=== PATIENT | female | born 1985 | race American Indian/Alaskan Native ===

== ENCOUNTER 2017-04-06 19:40 | Emergency (ER) | payer OTHER ==
[2017-04-06 20:26] LABS: Basophils % (Auto) 1.2 % (0.0-1.8); Eosinophils % (Auto) 5.4 % (0.0-4.3); Hemoglobin 10.3 gm/dl (10.1-14.3); Mean Corpuscular HGB Conc 32 % (30-34); Mean Corpuscular Volume 75 fl (79-97); Platelet Count 247 K/mm3 (140-440); Red Cell Distribution Width 17.1 % (13.2-15.2); White Blood Count 6.5 K/mm3 (4.5-11.0)
[2017-04-06 20:27] LABS: Mean Corpuscular Hemoglobin 24 pg (28-32)
[2017-04-06 20:35] LABS: INR 0.93 (0.87-1.13)
[2017-04-06 20:36] LABS: Partial Thromboplastin Time 30.7 Sec. (24.2-36.6)
[2017-04-06 20:45] LABS: Alanine Aminotransferase 13 units/L (7-56); Albumin 4.2 g/dL (3.9-5); Albumin/Globulin Ratio 1.4 %; BUN/Creatinine Ratio 13; Bilirubin,Total < 0.20 mg/dL (0.1-1.2); Blood Urea Nitrogen 9 mg/dL (7-17); Carbon Dioxide 27 mmol/L (22-30); Glucose 135 mg/dL (65-100); Total Protein 7.2 g/dL (6.3-8.2)
[2017-04-06 20:46] LABS: Alkaline Phosphatase 52 units/L (35-129); Anion Gap 18 mmol/L; Chloride 99.6 mmol/L (98-107); Lipase 55 units/L (13-60); Sodium 141 mmol/L (137-145)
--- NOTE | 2017-04-06 21:39 | Emergency Department Report ---
ED Chest Pain HPI - General Chief Complaint: Chest Pain Stated Complaint: CHEST PAIN AND SHORTNESS OF BREATH Time Seen by Provider: 04/06/17 21:28 Source: patient Mode of arrival: Ambulatory Limitations: No Limitations - History of Present Illness Initial Comments: Patient is 31 years old female history of diabetes and hypothyroidism, presented today with left-sided chest pain described as flutters that comes and goes started today and she does not have any shortness of breath no fever or cough. MD Complaint: chest pain Severity scale (0 -10): 4 - Related Data Allergies Allergy/AdvReac Type Severity Reaction Status Date / Time No Known Allergies Allergy Verified 04/06/17 19:54 Heart Score - HEART Score History: Moderately suspicious EKG: Normal Age: < 45 Risk factors: 1-2 risk factors Troponin: < normal limit HEART Score: 2 - Critical Actions Critical Actions: 0-3 pts:0.9-1.7%risk of adverse cardiac event.Candidate for discharge ED Review of Systems ROS: Stated complaint: CHEST PAIN AND SHORTNESS OF BREATH Other details as noted in HPI Comment: All other systems reviewed and negative Constitutional: denies: chills, diaphoresis Respiratory: denies: cough, orthopnea, shortness of breath, SOB with exertion, SOB at rest Cardiovascular: chest pain, palpitations. denies: dyspnea on exertion, orthopnea, edema, syncope, paroxysmal nocturnal dyspnea Gastrointestinal: constipation. denies: abdominal pain, nausea, vomiting, diarrhea, hematemesis, melena, hematochezia Genitourinary: denies: dysuria Musculoskeletal: denies: back pain Neurological: denies: headache, weakness, numbness, paresthesias ED Past Medical Hx - Past Medical History Previous Medical History?: Yes Hx Diabetes: Yes Additional medical history: Obesity - Surgical History Past Surgical History?: No - Social History Smoking Status: Light Tobacco Smoker Substance Use Type: Alcohol ED Physical Exam - General Limitations: No Limitations General appearance: alert, in no apparent distress - Head Head exam: Present: atraumatic, normocephalic - Eye Eye exam: Present: normal appearance, PERRL - ENT ENT exam: Present: normal exam, normal orophraynx, mucous membranes moist - Neck Neck exam: Present: normal inspection, full ROM. Absent: tenderness, meningismus, lymphadenopathy - Respiratory Respiratory exam: Present: normal lung sounds bilaterally. Absent: respiratory distress, wheezes, rales, rhonchi, stridor, chest wall tenderness - Cardiovascular Cardiovascular Exam: Present: regular rate, normal rhythm, normal heart sounds - GI/Abdominal GI/Abdominal exam: Present: soft, normal bowel sounds. Absent: distended, tenderness, guarding, rebound, rigid, mass, bruit, pulsatile mass, hernia - Extremities Exam Extremities exam: Present: normal inspection, full ROM, normal capillary refill - Back Exam Back exam: Present: normal inspection. Absent: tenderness, CVA tenderness (R), CVA tenderness (L) - Neurological Exam Neurological exam: Present: alert, oriented X3, CN II-XII intact, normal gait - Skin Skin exam: Present: warm, intact, normal color ED Course Vital Signs 04/06/17 04/06/17 04/06/17 19:44 21:16 21:30 Temperature 99.1 F 98.7 F Pulse Rate 81 79 76 Respiratory 18 17 19 Rate Blood Pressure 116/72 Blood Pressure 118/76 132/73 [Right] O2 Sat by Pulse 96 98 100 Oximetry - Reevaluation(s) Reevaluation #1: 04/06/17 22:39 Patient is sleeping comfortably easily arousable in no acute distress. I informed the patient about her TSH result which is 17 that indicate severe hypothyroidism. I will prescribe Synthroid and advised patient to follow up with her primary care physician for further management. ED Medical Decision Making - Lab Data Result diagrams: 04/06/17 20:07 04/06/17 20:07 - EKG Data -: EKG Interpreted by Me EKG shows normal: sinus rhythm - EKG Data Interpretation: no acute changes Critical care attestation.: If time is entered above; I have spent that time in minutes in the direct care of this critically ill patient, excluding procedure time. ED Disposition Clinical Impression: Chest pain, Hypothyroidism Disposition: DC-01 TO HOME OR SELFCARE Is pt being admited?: No Condition: Stable Instructions: Chest Pain (ED), Hypothyroidism (ED) Referrals: PRIMARY CARE,MD [Primary Care Provider] - 3-5 Days
[2017-04-06 21:46] LABS: Bacteria,Urine 1+ /HPF (Negative); Bilirubin,Urine NEG (Negative); Blood,Urine LG (Negative); Ketones,Urine NEG (Negative); Leukocyte Esterase,Urine TR (Negative); Mucus,Urine FEW /HPF; Nitrite,Urine NEG (Negative); Protein,Urine <15 mg/dL mg/dL (Negative); Urobilinogen,Urine < 2.0 mg/dL (<2.0)
[2017-04-06 21:47] LABS: RBC,Urine > 182.0 /HPF (0.0-6.0)
[2017-04-06 22:01] VITALS: BP 116/72
[2017-04-06] MEDS ORDERED: TORADOL PO ONE (23:11)
--- NOTE | 2017-04-07 08:27 | XRay Report ---
ROUTINE CHEST, TWO VIEWS: Fever. PA and lateral views demonstrate the heart and mediastinal contour to be of normal size and shape. The lungs are clear and fully expanded and the soft tissues and bony structures are normal. IMPRESSION: Normal study.
== END 2017-04-06 23:40 | disposition home or self-care (01) ==
LOC: ED 19:40
DX: R07.9 Chest pain, unspecified (principal); E03.9 Hypothyroidism, unspecified; E11.9 Type 2 diabetes mellitus without complications; E66.9 Obesity, unspecified; Z72.0 Tobacco use
CPT/HCPCS: 36415; 71020; 80053; 81001; 82805; 83690; 84439; 84443; 84484; 84703; 85025; 85610; 85730; 93005; 93010; 99284

== ENCOUNTER 2019-06-13 02:56 | Emergency (ER) | payer OTHER ==
[2019-06-13 03:18] VITALS: BP 115/63
[2019-06-13 04:01] LABS: Basophils # (Auto) 0.1 K/mm3 (0.0-0.1); Basophils % (Auto) 1.2 % (0.0-1.8); Eosinophils # (Auto) 0.2 K/mm3 (0.0-0.4); Eosinophils % (Auto) 3.6 % (0.0-4.3); Hematocrit 29.9 % (30.3-42.9); Hemoglobin 9.6 gm/dl (10.1-14.3); Lymphocytes # (Auto) 2.2 K/mm3 (1.2-5.4); Lymphocytes % (Auto) 32.5 % (13.4-35.0); Mean Corpuscular HGB Conc 32 % (30-34); Monocytes # (Auto) 0.6 K/mm3 (0.0-0.8); Platelet Count 258 K/mm3 (140-440); Red Blood Count 4.35 M/mm3 (3.65-5.03); Red Cell Distribution Width 19.7 % (13.2-15.2)
--- NOTE | 2019-06-13 04:02 | Emergency Department Report ---
ED General Adult HPI - General Chief complaint: Neuro Symptoms/Deficit Stated complaint: LEFT ARM AND HAND PAIN,HEADACHE AND BODYACHE Time Seen by Provider: 06/13/19 03:42 Source: patient Mode of arrival: Ambulatory Limitations: No Limitations - History of Present Illness Initial comments: 33-year-old -[place] female with history of hypothyroidism presents with complaints of intermittent headaches x one year, chronic back pain, and left hand pain radiating up her arm with numbness today. Patient states she has been evaluated in the ER many times over the past year for her headaches without any abnormalities being found. She denies any current headache, dizziness, vision changes, or confusion. Patient denies any injuries to her left arm or hand and also denies any heavy lifting or overuse of her extremity. She also reports that she took a nap and when she awoke she had numbness in her left leg that lasted a few seconds and then resolved. She denies any swelling/pain in her leg, hormone use, shortness of breath/chest pain, recent long travel, or hemoptysis. Patient states her back pain is chronic and intermittent and she has been following with a chiropractor and was diagnosed with a herniated disc. She denies any loss of bladder/bowel control, hematochezia/hematuria, or difficulty with ambulation. Patient admits to being noncompliant with her thyroid medication for the past 3 months. She states she is not currently following with a primary care provider - Related Data Previous Rx's Medication Instructions Recorded Last Taken Type Levothyroxine Sodium [Synthroid] 150 mcg PO DAILY #30 tablet 04/06/17 Unknown Rx Ferrous Sulfate [Ferrous Sulfate 324 mg PO TID 30 Days #90 tablet. 06/13/19 Unknown Rx 324 MG] Ibuprofen [Motrin 800 MG tab] 800 mg PO Q8HR PRN #21 tablet 06/13/19 Unknown Rx Allergies Allergy/AdvReac Type Severity Reaction Status Date / Time No Known Allergies Allergy Verified 04/06/17 19:54 ED Review of Systems ROS: Stated complaint: LEFT ARM AND HAND PAIN,HEADACHE AND BODYACHE Other details as noted in HPI Constitutional: denies: chills, fever Eyes: denies: eye pain, vision change Respiratory: denies: cough, shortness of breath Cardiovascular: denies: chest pain, palpitations, edema, syncope Endocrine: denies: excessive sweating, flushing Gastrointestinal: denies: abdominal pain, constipation, hematochezia Genitourinary: denies: urgency, frequency, hematuria Musculoskeletal: back pain, arthralgia. denies: joint swelling Skin: denies: rash, lesions Neurological: headache, numbness, paresthesias. denies: weakness, confusion, abnormal gait Psychiatric: denies: anxiety, depression, auditory hallucinations, visual hallucinations Hematological/Lymphatic: denies: easy bleeding, easy bruising, swollen glands ED Past Medical Hx - Past Medical History Previous Medical History?: Yes Hx Diabetes: Yes Additional medical history: Obesity, thyroid - Surgical History Past Surgical History?: No - Social History Smoking Status: Former Smoker Substance Use Type: None - Medications Home Medications: Home Medications Medication Instructions Recorded Confirmed Last Taken Type Levothyroxine Sodium [Synthroid] 150 mcg PO DAILY #30 tablet 04/06/17 Unknown Rx Ferrous Sulfate [Ferrous Sulfate 324 mg PO TID 30 Days #90 tablet.dr 06/13/19 Unknown Rx 324 MG] Ibuprofen [Motrin 800 MG tab] 800 mg PO Q8HR PRN #21 tablet 06/13/19 Unknown Rx ED Physical Exam - General Limitations: No Limitations General appearance: alert, in no apparent distress - Head Head exam: Present: atraumatic, normocephalic - Eye Eye exam: Present: normal appearance, PERRL. Absent: scleral icterus - ENT ENT exam: Present: normal orophraynx, mucous membranes moist - Neck Neck exam: Present: normal inspection, full ROM. Absent: tenderness - Respiratory Respiratory exam: Present: normal lung sounds bilaterally. Absent: respiratory distress - Cardiovascular Cardiovascular Exam: Present: regular rate, normal rhythm. Absent: systolic murmur, diastolic murmur, rubs, gallop - GI/Abdominal GI/Abdominal exam: Present: soft, normal bowel sounds - Extremities Exam Extremities exam: Present: normal inspection, full ROM. Absent: pedal edema, calf tenderness - Expanded Upper Extremity Exam Left Forearm Wrist exam: Present: full ROM, tenderness (left ), swelling (mild dorsal ). Absent: laceration, ecchymosis, deformity, erythema - Back Exam Back exam: Present: normal inspection, full ROM. Absent: paraspinal tenderness, vertebral tenderness - Neurological Exam Neurological exam: Present: alert, oriented X3, CN II-XII intact, normal gait. Absent: motor sensory deficit - Expanded Neurological Exam Expanded Cerebellar function: Finger to Nose: Normal, Heel to Bee: Normal, Romberg: Normal Sensory exam: Upper Extremity Light Touch: Normal, Lower Extremity Light Touch: Normal Motor strength exam: RUE: 5, LUE: 5, RLE: 5, LLE: 5 ED Course Vital Signs 06/13/19 03:07 Temperature 98.8 F Pulse Rate 87 Respiratory 20 Rate Blood Pressure 115/63 O2 Sat by Pulse 95 Oximetry ED Medical Decision Making - Lab Data Result diagrams: 06/13/19 03:40 06/13/19 03:40 Lab Results 06/13/19 06/13/19 06/13/19 Range/Units 03:40 03:40 03:40 WBC 6.8 (4.5-11.0) K/mm3 RBC 4.35 (3.65-5.03) M/mm3 Hgb 9.6 L (10.1-14.3) gm/dl Hct 29.9 L (30.3-42.9) % MCV 69 L (79-97) fl MCH 22 L (28-32) pg MCHC 32 (30-34) % RDW 19.7 H (13.2-15.2) % Plt Count 258 (140-440) K/mm3 Lymph % (Auto) 32.5 (13.4-35.0) % Centre % (Auto) 9.0 H (0.0-7.3) % Eos % (Auto) 3.6 (0.0-4.3) % Baso % (Auto) 1.2 (0.0-1.8) % Lymph # 2.2 (1.2-5.4) K/mm3 Centre # 0.6 (0.0-0.8) K/mm3 Eos # 0.2 (0.0-0.4) K/mm3 Baso # 0.1 (0.0-0.1) K/mm3 Seg Neutrophils % 53.7 (40.0-70.0) % Seg Neutrophils # 3.7 (1.8-7.7) K/mm3 Sodium 139 (137-145) mmol/L Potassium 4.0 (3.6-5.0) mmol/L Chloride 101.7 (98-107) mmol/L Carbon Dioxide 27 (22-30) mmol/L Anion Gap 14 mmol/L BUN 9 (7-17) mg/dL Creatinine 0.9 (0.7-1.2) mg/dL Estimated GFR > 60 ml/min BUN/Creatinine Ratio 10 % Glucose 154 H (65-100) mg/dL Calcium 9.1 (8.4-10.2) mg/dL Total Bilirubin 0.20 (0.1-1.2) mg/dL AST 24 (5-40) units/L ALT 13 (7-56) units/L Alkaline Phosphatase 46 (35-129) units/L Total Protein 7.5 (6.3-8.2) g/dL Albumin 4.2 (3.9-5) g/dL Albumin/Globulin Ratio 1.3 % TSH 10.310 H (0.270-4.200) mlU/mL Free T4 (0.76-1.46) ng/dL Urine Color (Yellow) Urine Turbidity (Clear) Urine pH (5.0-7.0) Ur Specific Boring (1.003-1.030) Urine Protein (Negative) mg/dL Urine Glucose (UA) (Negative) mg/dL Urine Ketones (Negative) mg/dL Urine Blood (Negative) Urine Nitrite (Negative) Ur Reducing Substances Urine Bilirubin (Negative) Urine Ictotest Urine Urobilinogen (<2.0) mg/dL Ur Leukocyte Esterase (Negative) Urine WBC (Auto) (0.0-6.0) /HPF Urine RBC (Auto) (0.0-6.0) /HPF U Epithel Cells (Auto) (0-13.0) /HPF Urine Bacteria (Auto) (Negative) /HPF Amorphous Crystals Urine Mucus /HPF Urine HCG, Qual (Negative) 06/13/19 06/13/19 Range/Units 03:40 05:17 WBC (4.5-11.0) K/mm3 RBC (3.65-5.03) M/mm3 Hgb (10.1-14.3) gm/dl Hct (30.3-42.9) % MCV (79-97) fl MCH (28-32) pg MCHC (30-34) % RDW (13.2-15.2) % Plt Count (140-440) K/mm3 Lymph % (Auto) (13.4-35.0) % Centre % (Auto) (0.0-7.3) % Eos % (Auto) (0.0-4.3) % Baso % (Auto) (0.0-1.8) % Lymph # (1.2-5.4) K/mm3 Centre # (0.0-0.8) K/mm3 Eos # (0.0-0.4) K/mm3 Baso # (0.0-0.1) K/mm3 Seg Neutrophils % (40.0-70.0) % Seg Neutrophils # (1.8-7.7) K/mm3 Sodium (137-145) mmol/L Potassium (3.6-5.0) mmol/L Chloride (98-107) mmol/L Carbon Dioxide (22-30) mmol/L Anion Gap mmol/L BUN (7-17) mg/dL Creatinine (0.7-1.2) mg/dL Estimated GFR ml/min BUN/Creatinine Ratio % Glucose (65-100) mg/dL Calcium (8.4-10.2) mg/dL Total Bilirubin (0.1-1.2) mg/dL AST (5-40) units/L ALT (7-56) units/L Alkaline Phosphatase (35-129) units/L Total Protein (6.3-8.2) g/dL Albumin (3.9-5) g/dL Albumin/Globulin Ratio % TSH (0.270-4.200) mlU/mL Free T4 0.69 L (0.76-1.46) ng/dL Urine Color Yellow (Yellow) Urine Turbidity Slightly-cloudy (Clear) Urine pH 6.0 (5.0-7.0) Ur Specific Boring 1.027 (1.003-1.030) Urine Protein 30 mg/dl (Negative) mg/dL Urine Glucose (UA) Neg (Negative) mg/dL Urine Ketones Tr (Negative) mg/dL Urine Blood Neg (Negative) Urine Nitrite Neg (Negative) Ur Reducing Substances Not Reportable Urine Bilirubin Neg (Negative) Urine Ictotest Not Reportable Urine Urobilinogen 2.0 (<2.0) mg/dL Ur Leukocyte Esterase Tr (Negative) Urine WBC (Auto) 4.0 (0.0-6.0) /HPF Urine RBC (Auto) 2.0 (0.0-6.0) /HPF U Epithel Cells (Auto) 6.0 (0-13.0) /HPF Urine Bacteria (Auto) 1+ (Negative) /HPF Amorphous Crystals Few Urine Mucus Few /HPF Urine HCG, Qual Negative (Negative) - Radiology Data Radiology results: report reviewed LEFT WRIST 3 VIEWS INDICATION / CLINICAL INFORMATION: pain, swelling, no injury COMPARISON: None available. FINDINGS: BONES / JOINT(S): No acute fracture or subluxation. No significant arthritis. SOFT TISSUES: No significant abnormality. ADDITIONAL FINDINGS: None. CT head/brain wo con INDICATION / CLINICAL INFORMATION: 33 years Female; Pt complains of headache with LEFT arm and leg numbness.. TECHNIQUE: Routine CT head without contrast. All CT scans at this location are performed using CT dose reduction for ALARA by means of automated exposure control. COMPARISON: None. FINDINGS: BRAIN / INTRACRANIAL CONTENTS: No acute hemorrhage, mass effect, midline shift, hydrocephalus, or acute, large territorial infarct. No chronic infarct or atrophy appreciated. No significant white matter abnormality. CRANIOCERVICAL JUNCTION: No significant abnormality. ORBITS: No significant abnormality of visualized orbits. SINUSES / MASTOIDS: No significant abnormality the visualized paranasal sinuses or mastoid air cells. ADDITIONAL FINDINGS: None. IMPRESSION: 1. No focal mass, hemorrhage, hydrocephalus, or acute, large territorial infarct. - Medical Decision Making 33-year-old -[place] female with history of hypothyroidism presents with complaints of intermittent headaches times one year, chronic back pain, and left hand pain radiating up her arm with numbness today. She denies any current KNOWLES or left leg numbness. She reports her back pain is chronic and denies any new changes. Pt also denies any redflag symptoms. CT head is negative for acute findings. Neuro exam is wnl. TSH noted to be elevated at 10pt states she has been noncompliant with her thyroid meds x 3 months. Free T4 mildly decreased at 0.69. Pt is unsure of the name and dosage of her thyroid medication. Vitals are wnl. XR of left wrist is normal. Discuss importance of follow-up with a primary care provider to restart on her thyroid medication. Also recommend follow-up with neurology for further evaluation of her chronic intermittent headaches. She is nontoxic appearing and stable for discharge home. Discussed very strict return precautions in great detail with patient who verbalizes understanding. Critical care attestation.: If time is entered above; I have spent that time in minutes in the direct care of this critically ill patient, excluding procedure time. ED Disposition Clinical Impression: Hyperglycemia, Intermittent headache, Left hand pain Chronic back pain Qualifiers: Back pain location: back pain in other location Qualified Code(s): M54.9 - [place], unspecified Iron deficiency anemia Qualifiers: Iron deficiency anemia type: other iron deficiency Qualified Code(s): D50.8 - Other iron deficiency anemias Disposition: TO HOME OR SELFCARE Is pt being admited?: No Condition: Stable Instructions: Hypothyroidism (ED), Acute Headache (ED), Hyperglycemia, Non-Di abetic (ED), Arthralgia (ED) Prescriptions: Ferrous Sulfate [Ferrous Sulfate 324 MG] 324 mg PO TID 30 Days #90 tablet. Ibuprofen [Motrin 800 MG tab] 800 mg PO Q8HR PRN #21 tablet PRN Reason: pain Referrals: MAXIMO RASMUSSEN MD [Referring] - 2-3 Days SAMSON GONZALEZ MD [Staff Physician] - 2-3 Days (For further evaluation and treatment of your thyroid disease and left wrist pain) Forms: Accompanied Note, Work/School Release Form(ED)
[2019-06-13 04:23] LABS: Alanine Aminotransferase 13 units/L (7-56); Albumin 4.2 g/dL (3.9-5); BUN/Creatinine Ratio 10; Blood Urea Nitrogen 9 mg/dL (7-17); Calcium 9.1 mg/dL (8.4-10.2); Hemolysis Index 1
[2019-06-13 04:31] LABS: Mean Corpuscular Volume 69 fl (79-97)
--- NOTE | 2019-06-13 04:31 | Cat Scan Report ---
CT head/brain wo con INDICATION / CLINICAL INFORMATION: 33 years Female; Pt complains of headache with LEFT arm and leg numbness.. TECHNIQUE: Routine CT head without contrast. All CT scans at this location are performed using CT dos e reduction for ALARA by means of automated exposure control. COMPARISON: None. FINDINGS: BRAIN / INTRACRANIAL CONTENTS: No acute hemorrhage, mass effect, midline shift, hydrocephalus, or acu te, large territorial infarct. No chronic infarct or atrophy appreciated. No significant white matter abnormality. CRANIOCERVICAL JUNCTION: No significant abnormality. ORBITS: No significant abnormality of visualized orbits. SINUSES / MASTOIDS: No significant abnormality the visualized paranasal sinuses or mastoid air cells. ADDITIONAL FINDINGS: None. IMPRESSION: 1. No focal mass, hemorrhage, hydrocephalus, or acute, large territorial infarct. Signer Name: Nacho Negro MD, III Signed: 06/13/2019 4:27 AM Workstation Name: [id number]
[2019-06-13 05:31] LABS: HCG Qualitative,Urine Negative (Negative)
[2019-06-13 05:39] LABS: Amorphous Crystals,Urine Few; Bacteria,Urine 1+ /HPF (Negative); Bilirubin,Urine NEG (Negative); Blood,Urine NEG (Negative); Color,Urine Yellow (Yellow); Mucus,Urine FEW /HPF
--- NOTE | 2019-06-13 06:01 | XRay Report ---
LEFT WRIST 3 VIEWS INDICATION / CLINICAL INFORMATION: pain, swelling, no injury COMPARISON: None available. FINDINGS: BONES / JOINT(S): No acute fracture or subluxation. No significant arthritis. SOFT TISSUES: No significant abnormality. ADDITIONAL FINDINGS: None. Signer Name: Merlin Fernandez MD Signed: 06/13/2019 5:56 AM Workstation Name: [id number]
== END 2019-06-13 06:40 | disposition home or self-care (01) ==
LOC: ED 02:56
DX: R51 Headache (principal); M79.642 Pain in left hand; M54.9 Dorsalgia, unspecified; G89.29 Other chronic pain; D50.8 Other iron deficiency anemias; E11.65 Type 2 diabetes mellitus with hyperglycemia; Z87.891 Personal history of nicotine dependence; Z79.899 Other long term (current) drug therapy
CPT/HCPCS: 36415; 70450; 80053; 81001; 81025; 84439; 84443; 85025

== ENCOUNTER 2019-08-14 11:48 | Outpatient (CLI) | payer OTHER ==
--- NOTE | 2019-08-14 13:04 | Mammography Report ---
DIGITAL DIAGNOSTIC MAMMOGRAM WITH CAD, 08/14/2019 INDICATION: 33-year-old with left breast/axillary pain. LEFT BREAST PAIN/LEFT AXILLA TECHNIQUE: Digital bilateral mammographic imaging was performed. This examination was interpreted with the benefit of Computer-aided Detection analysis. COMPARISON: None. This is a baseline mammogram. FINDINGS: Breast Density: The breasts are almost entirely fatty. There is no evidence of dominant mass, suspicious calcifications or architectural distortion in eithe r breast. However, a prominent left axillary lymph node is partially included on images and requires evaluation with ultrasound. IMPRESSION: Negative mammogram except for a prominent left axillary lymph node. Recommend return for ultrasound of the left breast and axilla. Follow up recommendation: Ultrasound Category 0: Incomplete. Needs additional imaging evaluation and/or prior mammograms for comparison. A "normal" or negative report should not discourage follow up or biopsy of a clinically significant f inding. A written summary of these findings will be mailed to the patient. The patient will be entered into a mammography reporting system which will generate a reminder letter for the patient's next appointmen t at the appropriate interval. According to the [employer], yearly mammograms are recommended starting at age 40 and continuing as long as a woman is in good health. Breast MRI is recommended for women with an [place] roximately 20-25% or greater lifetime risk of breast cancer, including women with a strong family his tory of breast or ovarian cancer and women who have been treated for Hodgkin's disease. Signer Name: Caleb Naqvi MD Signed: 08/14/2019 1:00 PM Workstation Name: [id number]
== END 2019-08-14 11:49 | disposition home or self-care (01) ==
LOC: SPVWC 11:48
PROVIDERS: ATTEND Surgery
DX: R59.0 Localized enlarged lymph nodes (principal); N64.4 Mastodynia
CPT/HCPCS: 77066

== ENCOUNTER 2019-08-15 14:35 | Outpatient (CLI) | payer OTHER ==
--- NOTE | 2019-08-15 15:33 | Ultrasound Report ---
EXAMINATION: Left Limited Breast Ultrasound, 08/15/2019 INDICATION: ABNORMAL MAMMOGRAM/LEFT BREAST PAIN. Patient presents for evaluation of a prominent left axillary lym ph node seen on recent mammogram. COMPARISON: Prior mammogram 08/14/2019 FINDINGS: Targeted ultrasound evaluation was performed of the area of interest. Targeted ultrasound of the left axilla reveals a prominent lymph node measuring up to 3.0 cm in greatest dimension with c ortical thickening measuring up to 7 mm in thickness. Targeted ultrasound was performed of the right axilla for comparison purposes, which reveals a prominent right axillary lymph node measuring up to 3 .1 cm in greatest dimension with cortical thickening measuring up to 6 mm. IMPRESSION: 1. Prominent bilateral axillary lymph nodes with cortical thickening. Given the fact that this is [place] ateral and symmetric, this favors a systemic or reactive etiology. Recommend clinical correlation for possible recent infection or underlying medical condition, and recommend short interval follow-up bi lateral axillary ultrasound in 3 months to ensure stability or resolution. Follow up recommendation: Short term follow up in 3 months. BI-RADS Category 3: Probably Benign. Followup in 3 months. Signer Name: Gricelda Bentley MD Signed: 08/15/2019 3:28 PM Workstation Name: [id number]
== END 2019-08-15 14:36 | disposition home or self-care (01) ==
LOC: SPVWC 14:35
PROVIDERS: ATTEND Surgery
DX: N64.9 Disorder of breast, unspecified (principal); N64.4 Mastodynia; N62 Hypertrophy of breast

== ENCOUNTER 2020-03-12 00:54 | Emergency (ER) | payer OTHER ==
[2020-03-12 02:01] LABS: Basophils # (Auto) 0.1 K/mm3 (0.0-0.1); Basophils % (Auto) 1.2 % (0.0-1.8); Eosinophils # (Auto) 0.2 K/mm3 (0.0-0.4); Eosinophils % (Auto) 2.8 % (0.0-4.3); Hematocrit 32.9 % (30.3-42.9); Hemoglobin 10.5 gm/dl (10.1-14.3); Lymphocytes # (Auto) 2.7 K/mm3 (1.2-5.4); Lymphocytes % (Auto) 42.4 % (13.4-35.0); Mean Corpuscular HGB Conc 32 % (30-34); Monocytes # (Auto) 0.5 K/mm3 (0.0-0.8); Monocytes % (Auto) 8.6 % (0.0-7.3); Platelet Count 258 K/mm3 (140-440); Red Blood Count 4.88 M/mm3 (3.65-5.03); Red Cell Distribution Width 19.7 % (13.2-15.2)
[2020-03-12 02:09] LABS: Mean Corpuscular Volume 67 fl (79-97)
[2020-03-12 02:26] LABS: Alanine Aminotransferase 9 units/L (7-56); Albumin 4.2 g/dL (3.9-5); BUN/Creatinine Ratio 14; Blood Urea Nitrogen 11 mg/dL (7-17); Calcium 9.4 mg/dL (8.4-10.2); Hemolysis Index 10
[2020-03-12] MEDS ORDERED: SODIUM CHLORIDE 0.9% 1000 ML 1,000 ML IV ONE ×2 (03:45)
[2020-03-12] MEDS ORDERED: DEXTROSE 50% IN WATER (25GM) 50 ML SYRINGE IV PRN ×2 (03:45→03:48)
--- NOTE | 2020-03-12 03:46 | Emergency Department Report ---
ED Dizziness HPI - General Chief Complaint: Hyperglycemia Stated Complaint: HIGH BS Time Seen by Provider: 03/12/20 03:33 Source: patient Mode of arrival: Ambulatory Limitations: No Limitations - History of Present Illness Initial Comments: Patient is a 34-year-old female who presents emergency room with complaints of dizziness and lightheadedness. Patient states that she checked her sugar today and it read high on her machine. Patient states she has not been compliant with her diabetes medications. Patient only supposed to be on Metformin. Patient states she has not seen a physician for a while. Patient states that she having frequent urination. Patient states she is having increased thirst. Patient denies chest pain or shortness of breath. Patient denies recent travel. Patient denies recent international travel. Patient denies exposure to the novel coronavirus. Patient denies sick contacts. Patient denies fever and chills. Patient denies cough. Patient denies diarrhea. Patient denies coming in contact with anybody with symptoms of the novel coronavirus. MD Complaint: dizziness, lightheadedness - Related Data Previous Rx's Medication Instructions Recorded Last Taken Type Ferrous Sulfate [Ferrous Sulfate 324 mg PO TID 30 Days #90 tablet.dr 06/13/19 Unknown Rx 324 MG] Ibuprofen [Motrin 800 MG tab] 800 mg PO Q8HR PRN #21 tablet 06/13/19 Unknown Rx Levothyroxine Sodium [Synthroid] 150 mcg PO DAILY #30 tablet 03/12/20 Unknown Rx metFORMIN [Glucophage] 500 mg PO BID #30 tablet 03/12/20 Unknown Rx Allergies Allergy/AdvReac Type Severity Reaction Status Date / Time No Known Allergies Allergy Verified 04/06/17 19:54 ED Review of Systems ROS: Stated complaint: HIGH BS Other details as noted in HPI Constitutional: denies: chills, fever Eyes: denies: eye pain, eye discharge, vision change ENT: denies: ear pain, throat pain Respiratory: denies: cough, shortness of breath, wheezing Cardiovascular: denies: chest pain, palpitations Endocrine: no symptoms reported Gastrointestinal: denies: abdominal pain, nausea, diarrhea Genitourinary: denies: urgency, dysuria, discharge Musculoskeletal: denies: back pain, joint swelling, arthralgia Skin: denies: rash, lesions Neurological: as per HPI, weakness. denies: headache, paresthesias Psychiatric: denies: anxiety, depression Hematological/Lymphatic: denies: easy bleeding, easy bruising ED Past Medical Hx - Past Medical History Previous Medical History?: Yes Hx Diabetes: Yes Additional medical history: Obesity, thyroid - Surgical History Past Surgical History?: No - Family History Family history: no significant - Social History Smoking Status: Former Smoker Substance Use Type: None - Medications Home Medications: Home Medications Medication Instructions Recorded Confirmed Last Taken Type Ferrous Sulfate [Ferrous Sulfate 324 mg PO TID 30 Days #90 tablet. 06/13/19 Unknown Rx 324 MG] Ibuprofen [Motrin 800 MG tab] 800 mg PO Q8HR PRN #21 tablet 06/13/19 Unknown Rx Levothyroxine Sodium [Synthroid] 150 mcg PO DAILY #30 tablet 03/12/20 Unknown Rx metFORMIN [Glucophage] 500 mg PO BID #30 tablet 03/12/20 Unknown Rx ED Physical Exam - General Limitations: No Limitations General appearance: alert, in no apparent distress - Head Head exam: Present: atraumatic, normocephalic - Eye Eye exam: Present: normal appearance - ENT ENT exam: Present: mucous membranes dry - Neck Neck exam: Present: normal inspection - Respiratory Respiratory exam: Present: normal lung sounds bilaterally. Absent: respiratory distress - Cardiovascular Cardiovascular Exam: Present: regular rate, normal rhythm. Absent: systolic murmur, diastolic murmur, rubs, gallop - GI/Abdominal GI/Abdominal exam: Present: soft, normal bowel sounds - Extremities Exam Extremities exam: Present: normal inspection - Back Exam Back exam: Present: normal inspection - Neurological Exam Neurological exam: Present: alert, oriented X3 - Psychiatric Psychiatric exam: Present: normal affect, normal mood - Skin Skin exam: Present: warm, dry, intact, normal color. Absent: rash ED Course Vital Signs 03/12/20 03/12/20 01:07 06:17 Temperature 98.8 F Pulse Rate 93 H 80 Respiratory 16 18 Rate Blood Pressure 129/77 Blood Pressure 130/86 [Left] O2 Sat by Pulse 97 100 Oximetry - Reevaluation(s) Reevaluation #1: Patient states she is feeling much better. Patient states that her dizziness has resolved. Patient states that she is also out of her thyroid medication. I discussed all results and clinical findings with patient. I discussed plan of care with patient. Patient agrees with plan of care. Patient is stable for discharge. Patient will be discharged home. Patient given discharge instructions. Patient voiced understanding of discharge instructions. 03/12/20 06:18 ED Medical Decision Making - Lab Data Result diagrams: 03/12/20 01:05 03/12/20 01:05 - Medical Decision Making Patient is a 34-year-old female who presents emergency room with complaints of dizziness, weakness and hyperglycemia. Patient had labs done. Patient's labs significant for hyperglycemia. Patient's anion gap is normal. Patient's Bicarb is normal. Patient's CBC is normal. Patient given fluids and insulin in the ER. Patient responded well to treatment. Patient has been noncompliant with her diabetes and thyroid medication. Patient given a refill of Metformin and her thyroid medication. Patient stable for discharge. Patient given discharge instructions. Prior to discharge patient was essentially asymptomatic. - Differential Diagnosis Hyperglycemia, DKA, HHS, noncompliance, uncontrolled diabetes. Critical care attestation.: If time is entered above; I have spent that time in minutes in the direct care of this critically ill patient, excluding procedure time. ED Disposition Clinical Impression: Hyperglycemia, Weakness, Dizziness, Frequent urination, Noncompliance Uncontrolled diabetes mellitus Qualifiers: Diabetes mellitus type: type 2 Glycemic state: with hyperglycemia Qualified Code(s): E11.65 - Type 2 diabetes mellitus with hyperglycemia Disposition: - TO HOME OR SELFCARE Is pt being admited?: Yes Does the pt Need Aspirin: No Instructions: How to Check Your Blood Sugar (ED), Diabetes Mellitus Type 2 in Adults (ED) Additional Instructions: Patient to follow-up with primary care in 2 to 3 days. Patient to rest. Patient to increase water. Patient to be compliant with all medications. Patient to eat a diabetic diet. Patient to monitor blood sugars. Patient to take blood sugar log to all follow-up appointments.. Patient to take Tylenol or ibuprofen as needed for pain. Patient to take meds as directed. Patient to return to the ER if condition worsens, changes or new symptoms arise. Prescriptions: metFORMIN [Glucophage] 500 mg PO BID #30 tablet Levothyroxine Sodium [Synthroid] 150 mcg PO DAILY #30 tablet Referrals: PRIMARY CAREMD [Primary Care Provider] - 2-3 Days EVY HARRISON MD [Staff Physician] - 2-3 Days Time of Disposition: 06:19
[2020-03-12] MEDS ORDERED: INSULIN REGULAR, HUMAN 100 UNITS in SODIUM CHLORIDE 0.9% 99 ML IV SCH ×2 (04:00)
[2020-03-12] MEDS ORDERED: INSULIN REGULAR, HUMAN 100 UNIT/ML 3ML VIAL IV ONE (04:01)
[2020-03-12 04:03] LABS: Bilirubin,Urine NEG (Negative); Blood,Urine NEG (Negative); Color,Urine Colorless (Yellow); Protein,Urine <15 mg/dL mg/dL (Negative); RBC,Urine < 1.0 /HPF (0.0-6.0); Urobilinogen,Urine < 2.0 mg/dL (<2.0)
[2020-03-12] MEDS ORDERED: INSULIN REGULAR, HUMAN 100 UNITS/1 ML ONE (05:00)
[2020-03-12 06:18] VITALS: BP 130/86
== END 2020-03-12 07:07 | disposition home or self-care (01) ==
LOC: ED 00:54
DX: E11.65 Type 2 diabetes mellitus with hyperglycemia (principal); R53.1 Weakness; R42 Dizziness and giddiness; R35.0 Frequency of micturition; Z91.19 Patient's noncompliance with other medical treatment and regimen; Z87.891 Personal history of nicotine dependence; Z79.84 Long term (current) use of oral hypoglycemic drugs; Z79.1 Long term (current) use of non-steroidal anti-inflammatories (NSAID); Z79.899 Other long term (current) drug therapy
CPT/HCPCS: 36415; 80053; 81001; 82962; 85025; 96361; 96374; 99283; J7030; J1815

== ENCOUNTER 2020-10-01 23:58 | Emergency (ER) | payer OTHER ==
[2020-10-02] MEDS ORDERED: SODIUM CHLORIDE 0.9% 1000 ML 1,000 ML IV ONE ×3 (02:10→07:47)
[2020-10-02 02:20] LABS: Bilirubin,Urine NEG (Negative); Blood,Urine NEG (Negative); Color,Urine Straw (Yellow); Mucus,Urine FEW /HPF; Protein,Urine <15 mg/dL mg/dL (Negative); Urobilinogen,Urine < 2.0 mg/dL (<2.0)
[2020-10-02 02:28] LABS: Hematocrit 32.3 % (30.3-42.9); Hemoglobin 10.7 gm/dl (10.1-14.3); Mean Corpuscular HGB Conc 33 % (30-34); Platelet Count 257 K/mm3 (140-440); Red Blood Count 4.66 M/mm3 (3.65-5.03); Red Cell Distribution Width 17.5 % (13.2-15.2)
[2020-10-02 02:29] LABS: Mean Corpuscular Volume 69 fl (79-97)
[2020-10-02 02:47] LABS: Alanine Aminotransferase 21 units/L (7-56); Albumin 4.5 g/dL (3.9-5); BUN/Creatinine Ratio 15; Blood Urea Nitrogen 12 mg/dL (7-17); Calcium 8.8 mg/dL (8.4-10.2); Hemolysis Index 0
--- NOTE | 2020-10-02 03:25 | Event Note ---
ED Screening Note Date of service: 10/02/20 Time: 02:20 ED Screening Note: Patient is a 34-year-old -[place] female with a history of morbid obesity, hypertension and noninsulin-dependent diabetes who presents to the ED with complaint of acute onset persistent hyperglycemia for the last 2 weeks, stating that the last time she checked her blood sugar was 2 days ago and it was "high" and suspected that it may have been over 500 mg/dL. Patient states that she takes Metformin 500 mg twice a day but rarely checks her blood sugar. Patient denies dizziness, syncope, chest pain, shortness of breath, abdominal pain, nausea and vomiting, dysuria, urinary frequency and urgency, fever, ch ills, diarrhea, headache, lightheadedness or palpitations. This initial assessment/diagnostic orders/clinical plan/treatment(s) is/are subject to change based on patients health status, clinical progression and re- assessment by fellow clinical providers in the ED. Further treatment and workup at subsequent clinical providers discretion. Patient/guardian urged not to elope from the ED as their condition may be serious if not clinically assessed and managed. Initial orders include: CBC, CMP, UA, hCG,
[2020-10-02] MEDS ORDERED: INSULIN REGULAR, HUMAN 100 UNITS/1 ML IV ONE ×2 (07:47→08:47)
--- NOTE | 2020-10-02 08:05 | Emergency Department Report ---
HPI - General Chief Complaint: Hyperglycemia Time Seen by Provider: 10/02/20 07:33 - HPI HPI: Room 20 The patient is a 34-year-old female present with a chief complaint of fatigue and hyperglycemia. The patient states for 1 week she is intermittent blurred vision lightheadedness sluggishness. Patient states for the same amount of time her blood sugar has been elevated. Patient states she has been intermittently compliant with her Metformin. Patient admits to polyuria and polydipsia. ED Past Medical Hx - Past Medical History Previous Medical History?: Yes Hx Diabetes: Yes Additional medical history: Obesity, thyroid - Surgical History Past Surgical History?: No - Family History Family history: no significant - Social History Smoking Status: Former Smoker (None x19 years) Substance Use Type: None (Denies illicit drug use), Alcohol (Occasional) - Medications Home Medications: Home Medications Medication Instructions Recorded Confirmed Last Taken Type Ferrous Sulfate [Ferrous Sulfate 324 mg PO TID 30 Days #90 tablet. 06/13/19 Unknown Rx 324 MG] Ibuprofen [Motrin 800 MG tab] 800 mg PO Q8HR PRN #21 tablet 06/13/19 Unknown Rx Levothyroxine Sodium [Synthroid] 150 mcg PO DAILY #30 tablet 03/12/20 Unknown Rx metFORMIN [Glucophage] 500 mg PO BID #30 tablet 03/12/20 Unknown Rx ED Review of Systems ROS: Stated complaint: HIGH BLOOD SUGAR Other details as noted in HPI Constitutional: no symptoms reported Eyes: other (Blurred vision) ENT: denies: throat pain Respiratory: no symptoms reported Cardiovascular: denies: chest pain Endocrine: no symptoms reported Gastrointestinal: denies: abdominal pain Genitourinary: denies: dysuria Musculoskeletal: denies: back pain Neurological: denies: headache Physical Exam - Physical Exam Vital Signs: Vital Signs 10/02/20 01:53 Temperature 98.9 F Pulse Rate 94 H Respiratory 20 Rate Blood Pressure 139/87 O2 Sat by Pulse 97 Oximetry Physical Exam: GENERAL: The patient is well-developed well-nourished female lying on stretcher not appearing to be in acute distress. [] HEENT: Normocephalic. Atraumatic. Extraocular motions are intact. Patient has moist mucous membranes. NECK: Supple. Trachea midline CHEST/LUNGS: Clear to auscultation. There is no respiratory distress noted. HEART/CARDIOVASCULAR: Regular. There is no tachycardia. There is no gallop rub or murmur. ABDOMEN: Abdomen is soft, nontender. Patient has normal bowel sounds. There is no abdominal distention. SKIN: There is no rash. There is no edema. There is no diaphoresis. NEURO: The patient is awake, alert, and oriented. The patient is cooperative. The patient has no focal neurologic deficits. The patient has normal speech MUSCULOSKELETAL: There is no evidence of acute injury. ED Course Vital Signs 10/02/20 01:53 Temperature 98.9 F Pulse Rate 94 H Respiratory 20 Rate Blood Pressure 139/87 O2 Sat by Pulse 97 Oximetry ED Medical Decision Making - Lab Data Result diagrams: 10/02/20 01:59 10/02/20 01:59 Vital Signs 10/02/20 01:53 Temperature 98.9 F Pulse Rate 94 H Respiratory 20 Rate Blood Pressure 139/87 O2 Sat by Pulse 97 Oximetry - EKG Data -: EKG Interpreted by Ct EKG shows normal: sinus rhythm Rate: normal - EKG Data When compared to previous EKG there are: previous EKG unavailable Interpretation: normal EKG - Medical Decision Making Patient complained of chest pressure during stay in ED. EKG reveals normal sinus rhythm without ischemic changes. Patient refuses to allow lab to draw blood for cardiac enzymes. Patient leaving AGAINST MEDICAL ADVICE. Patient verbalized understanding of increased risk of morbidity and/or mortality should she leave the hospital AGAINST MEDICAL ADVICE. - Differential Diagnosis Hyperglycemia, DKA, dehydration Critical care attestation.: If time is entered above; I have spent that time in minutes in the direct care of this critically ill patient, excluding procedure time. ED Disposition Clinical Impression: Hyperglycemia, Chest pressure Disposition: -07 LEFT AGAINST MED ADVICE Is pt being admited?: No Does the pt Need Aspirin: Yes Condition: Undetermined Referrals: PRIMARY CARE, [Primary Care Provider] - 3-5 Days Time of Disposition: 10:21 (Patient leaving AMA)
[2020-10-02 09:06] VITALS: BP 130/83
--- NOTE | 2020-10-05 11:37 | Electrocardiograph Report ---
[facility] Test Date: 2020-10-02 Test Time: 08:51:51 Pat Name: ANAHY GRANADO Department: Room: Gender: F [employer]: [id number] : [id number] Requested By: JACKSON GRIGSBY Order Number: [id number] Reading MD: Jerry Sapp Measurements Intervals [place] Rate: 72 P: 57 ME: 193 QRS: 66 QRSD: 95 T: 50 QT: 390 QTc: 427 Interpretive Statements Sinus rhythm No previous ECG available for comparison Electronically Signed On 10-05-2020 11:36:55 EDT by Jerry Sapp
== END 2020-10-02 10:24 | disposition left against medical advice (07) ==
LOC: ED 23:58
DX: E11.65 Type 2 diabetes mellitus with hyperglycemia (principal); R07.89 Other chest pain; Z87.891 Personal history of nicotine dependence; Z79.84 Long term (current) use of oral hypoglycemic drugs; Z79.1 Long term (current) use of non-steroidal anti-inflammatories (NSAID); Z79.899 Other long term (current) drug therapy
CPT/HCPCS: 36415; 80053; 81001; 82805; 82962; 84703; 85027; 93005; 96361; 96374; 99283; J7030; J1815